=== PATIENT | male | born 1965 | race African-American/Black ===

== ENCOUNTER 2019-08-23 18:11 | Emergency (ER) | payer MEDICAID ==
[~2019-08-23] VITALS: Ht 170.2 cm; Wt 90.7 kg
[~2019-08-23 18:11] MED LIST: Advair HHN; IBUPROFEN400 MG PO; Lisinopril PO
[2019-08-23 18:17] VITALS: BP 217/122
[2019-08-23] MEDS ORDERED: LISINOPRIL20 MG ORAL (18:19)
[2019-08-23] MEDS ORDERED: hydroCHLOROthiazide 25mg cap ORAL ONE (18:30)
--- NOTE | 2019-08-23 19:05 | Emergency Room Report ---
History of Present Illness General Chief Complaint: Headache Source: Patient Present Illness HPI 53-year-old male with history of hypertension, asthma currently taking lisinopril brought in by paramedics due to new onset of fever, headache and loss of taste that started earlier today. Patient also complains of slight shortness of breath however denies chest pain, cough and congestion. Patient appears to have elevated blood pressure upon arrival reports that he has not taken his lisinopril today. Denies any recent travel. Reports that he has been staying at home is full-time quarantining himself. Denies abdominal pain, nausea vomiting diarrhea. Appears to have low-grade fever of 99 F, with normal oxygenation. O2 sat is 99% on room air. Vital signs otherwise within normal limits. Reports that he ran out of his albuterol inhaler and is requesting a refill. Reports that he also feels swelling and achiness in his lower extremities however denies any tingling numbness or pain. Reports that he also suffers from anxiety and every now and then vapes. Denies tobacco smoke. Allergies: Coded Allergies: No Known Allergies (Unverified , 04/01/12) COVID-19 Screening Contact w/high risk pt: No Recent Travel to affected area: No Experienced COVID-19 symptoms?: Yes COVID-19 symptoms experienced: Fever (T>100.4F or >38C) Patient History Past Medical History: see triage record Past Surgical History: none Pertinent Family History: none Reviewed Nursing Documentation: PMH: Agreed; PSxH: Agreed Nursing Documentation-PMH Hx Hypertension: Yes Hx Asthma: Yes Review of Systems All Other Systems: negative except mentioned in HPI Physical Exam Vital Signs Date Time Temp Pulse Resp B/P (MAP) Pulse Ox O2 Delivery O2 Flow Rate FiO2 08/23/19 18:07 99.9 20 18 200/109 (139) 99 Room Air Sp02 EP Interpretation: reviewed, normal General Appearance: no apparent distress, alert, GCS 15, non-toxic Head: normocephalic, atraumatic Eyes: bilateral eye normal inspection, bilateral eye PERRL ENT: hearing grossly normal, normal pharynx, no angioedema, normal voice Neck: full range of motion, supple/symm/no masses Respiratory: chest non-tender, lungs clear, normal breath sounds, no rhonchi, no retraction, no wheezing, speaking full sentences Cardiovascular #1: regular rate, rhythm, no edema Gastrointestinal: normal inspection Genitourinary: normal inspection Musculoskeletal: normal inspection Neurologic: alert, motor strength/tone normal, oriented x3, sensory intact, responsive, speech normal Psychiatric: judgement/insight normal, memory normal, mood/affect normal, no suicidal/homicidal ideation Skin: no rash Lymphatic: normal inspection Medical Decision Making PA Attestation All my diagnosis and treatment plans were reviewed ad discussed with my supervising physician Dr. Pryor Diagnostic Impression: Primary Impression: Suspected COVID-19 virus infection Additional Impressions: Headache Asthma HTN (hypertension) ER Course 53-year-old male with history of hypertension, asthma currently taking lisinopril brought in by paramedics due to new onset of fever, headache and loss of taste that started earlier today. Patient also complains of slight shortness of breath however denies chest pain, cough and congestion. Patient appears to have elevated blood pressure upon arrival reports that he has not taken his lisinopril today. Denies any recent travel. Reports that he has been staying at home is full-time quarantining himself. Denies abdominal pain, nausea vomiting diarrhea. Appears to have low-grade fever of 99 F, with normal oxygenation. O2 sat is 99% on room air. Vital signs otherwise within normal limits. Reports that he ran out of his albuterol inhaler and is requesting a refill. Reports that he also feels swelling and achiness in his lower extremities however denies any tingling numbness or pain. Reports that he also suffers from anxiety and every now and then vapes. Denies tobacco smoke. Ddx considered but are not limited to: Coronavirus, strep pharyngitis, URI, tonsillitis, peritonsillar abscess, influneza Vital signs: are WNL, pt. is afebrile H&PE are most consistent with: Suspected COVID-19, headache, asthma, hypertension ORDERS: Chest x-ray, amlodipine, Tylenol, albuterol inhaler ED INTERVENTIONS: Amlodipine 10 mg p.o., hydrochlorothiazide 25 mg p.o. DISCHARGE: At this time pt. is stable for d/c to home. Will provide printed patient care instructions, and any necessary prescriptions. Care plan and follow up instructions have been discussed with the patient prior to discharge. Take medication as directed, follow-up with your primary doctor, you need to stay home for self quarantine due to Covid 19 precautions for 14 days patient to follow-up with primary doctor regarding leg swelling and all other. Associated symptoms. At this time patient is stable to go home however advised him to return to the emergency room if any respiratory distress and worsening symptoms. Also gave information to the COVID-[address] and advised him to make appointment. Also advised patient to stop vaping as it will exacerbate his symptoms and may expedite progression of symptoms into respiratory distress. Also advised patient to stop taking lisinopril as CLAUDIA inhibitors are contraindicated while being infected by COVID-19. Advised patient to start taking amlodipine instead. Chest X-Ray Diagnostic Results Chest X-Ray Diagnostic Results : Chest X-Ray Ordered: Yes # of Views/Limited/Complete: 1 View Indication: Shortness of Breath EP Interpretation: Yes PA Xray: Interpretation reviewed, by supervising MD, and agrees with findings. Interpretation: no consolidation, no effusion, no pneumothorax Impression: No acute disease Electronically Signed by: Sriram Inman PA-C Last Vital Signs Date Time Temp Pulse Resp B/P (MAP) Pulse Ox O2 Delivery O2 Flow Rate FiO2 08/23/19 18:28 20 217/122 08/23/19 18:17 99.9 16 100 Room Air Disposition: HOME, SELF-CARE Condition: Stable Scripts Acetaminophen* (TYLENOL EXTRA STRENGTH*) 500 Mg Tablet 500 MG ORAL Q8H PRN for Prn Headache/Temp > 101, #30 TAB 0 Refills Prov: Sriram Waller 08/23/19 Amlodipine Besylate* (AMLODIPINE BESYLATE*) 10 Mg Tablet 10 MG ORAL DAILY for 30 Days, #30 TAB Prov: Sriram Waller 08/23/19 Albuterol Sulfate (VENTOLIN HFA) 18 Gm Hfa.aer.ad 2 PUFFS INH EVERY 6 HOURS, #18 GM 0 Refills Prov: Sriram Waller 08/23/19 Referrals: NOT CHOSEN IPA/,REFERRING (PCP) Patient Instructions: Asthma, Adult, [id number], General Headache Without Cause, Hypertension, [id number], Upper Respiratory Infection, Adult, Easy-to- Read Additional Instructions: Take medication as directed, follow-up with your primary doctor, you need to stay home for self quarantine due to Covid 19 precautions for 14 days. Stop taking lisinopril for your high blood pressure, start taking amlodipine instead. Contact your primary care provider. If worsening symptoms, difficulty breathing, respiratory distress return emergency room. Sriram Waller Aug 23, 2019 19:05
[2019-08-23] MEDS ORDERED: VENTOLIN HFA18 GM INH (19:06)
[2019-08-23] MEDS ORDERED: AMLODIPINE BESY10 MG ORAL (19:06)
[2019-08-23] MEDS ORDERED: TYLENOL EXTRA500 MG ORAL (19:06)
[2019-08-23 19:15] VITALS: BP 217/122
--- NOTE | 2019-08-24 08:38 | Diagnostic Imaging Report ---
Indication: Cough Technique: One view of the chest Comparison: 07/24/2010 Findings: There is a 3 cm diameter ovoid masslike opacity right upper lobe, not evident previously. Some atelectasis is seen in the left perihilar region. The remainder of the lungs and pleural spaces are clear. The heart size is normal. Impression: 3 cm right upper lobe masslike opacity. Possibility of neoplasm should be considered. Consider further evaluation with chest CT. This finding was reported to Dr. Mckeon in the emergency room at the time of interpretation Left perihilar atelectatic changes. No acute process otherwise
== END 2019-08-23 19:16 | disposition home or self-care (01) ==
LOC: EDBD 18:11 → EMR 18:34
DX: R51 Headache (principal); J45.909 Unspecified asthma, uncomplicated; I10 Essential (primary) hypertension; R50.9 Fever, unspecified
CPT/HCPCS: 71045; Z7502; 99283

== ENCOUNTER 2020-01-01 22:08 | Emergency (ER) | payer MEDICAID, OTHER ==
[~2020-01-01] VITALS: Ht 172.7 cm; Wt 90.7 kg
[~2020-01-01 22:08] MED LIST changes: +AMLODIPINE BESY10 MG ORAL; +LISINOPRIL20 MG ORAL; +TYLENOL EXTRA500 MG ORAL; +VENTOLIN HFA18 GM INH
[2020-01-01] MEDS ORDERED: Aspirin Baby 81mg ORAL ONE (22:15)
[2020-01-01] MEDS ORDERED: Solu-MEDROL 125mg Inj IVP ONE (22:15)
--- NOTE | 2020-01-01 22:15 | Emergency Room Report ---
History of Present Illness General Chief Complaint: Dyspnea/Respdistress Source: Patient, Medical Record, EMS Present Illness HPI This is a 54-year-old male with a history of hypertension and asthma. His asthma is usually well controlled until lately. He said last week he has to use his inhaler more. Denies any fever chills but denies any nausea vomiting. Worse with exertion. Better with rest. Symptoms worsened tonight where he said he could not breathe. He had to call 911. Per EMS, his room air pulse oxygenation was 90%. He was anxious and was tripoding. Was wheezing. [employer] gave him 5 mg albuterol. Blood pressure was also very elevated with systolic over 230. Patient said that he has been increasing edema to lower extremity. Worse with exertion. Better with rest. Worse with lying flat. Denies any chest pain. Never been intubated before. Allergies: Coded Allergies: No Known Allergies (Unverified , 04/01/12) COVID-19 Screening Contact w/high risk pt: No Recent Travel to affected area: No Experienced COVID-19 symptoms?: Yes COVID-19 symptoms experienced: Fever (T>100.4F or >38C) COVID-19 Testing performed FLOOR TRADER: No Patient History Past Medical History: see triage record, old chart reviewed, HTN, asthma Past Surgical History: none Pertinent Family History: none Social History: Denies: smoking Immunizations: other Reviewed Nursing Documentation: PMH: Agreed; PSxH: Agreed Nursing Documentation-PMH Hx Hypertension: Yes Hx Asthma: Yes Review of Systems Eye: Denies: eye pain, blurred vision ENT: Denies: ear pain, nose congestion, throat swelling Respiratory: Reports: shortness of breath, wheezing; Denies: cough Cardiovascular: Denies: chest pain, palpitations Gastrointestinal: Denies: abdominal pain, diarrhea, nausea, vomiting Musculoskeletal: Denies: back pain, joint pain Skin: Denies: rash Neurological: Denies: headache, numbness Endocrine: Denies: increased thirst, increased urine Hematologic/Lymphatic: Denies: easy bruising All Other Systems: negative except mentioned in HPI Physical Exam Vital Signs Date Time Temp Pulse Resp B/P (MAP) Pulse Ox O2 Delivery O2 Flow Rate FiO2 01/01/20 22:04 99.0 130 22 235/100 (145) 92 Room Air Vitals with hypotension and tachycardia Sp02 EP Interpretation: reviewed, abnormal General Appearance: well appearing, alert, moderate distress Head: normocephalic, atraumatic Eyes: bilateral eye PERRL, bilateral eye EOMI ENT: hearing grossly normal, normal pharynx Neck: full range of motion, supple, no meningismus Respiratory: chest non-tender, respiratory distress, decreased breath sounds, accessory muscle use, wheezing Cardiovascular #1: regular rate, rhythm, no murmur Gastrointestinal: normal bowel sounds, non tender, no mass, no organomegaly, no bruit, non-distended Musculoskeletal: back normal, normal range of motion, gait/station normal, swelling - 1+ edema Psychiatric: mood/affect normal Medical Decision Making Diagnostic Impression: Primary Impression: Respiratory distress Additional Impressions: Asthma exacerbation Qualified Codes: J45.901 - Unspecified asthma with (acute) exacerbation Hypertension Qualified Codes: I10 - Essential (primary) hypertension ER Course Patient presents with respiratory distress. Much improved after breathing treatment by EMS. I gave him steroid here. Blood pressure also improved. He said he felt much better now. Back to baseline. No wheezing. EKG is normal. Troponin is negative. BNP is normal. He did diurese well with Lasix. Blood pressure is now 153/100. He was on Norvasc in addition to his lisinopril. He stopped it because it caused pedal edema. Initially I put patient in for admission but since he felt back to baseline and has no respiratory issue now, he wants to go home. His room air oxygenation is 98 to 100%. EKG Diagnostic Results Rate: tachycardiac - 106 Rhythm: NSR ST Segments: no acute changes ASA given to the pt in ED: Yes Rhythm Strip Diag. Results EP Interpretation: yes Rate: 100 Rhythm: NSR, no PVC's, no ectopy Chest X-Ray Diagnostic Results Chest X-Ray Diagnostic Results : Chest X-Ray Ordered: Yes # of Views/Limited/Complete: 1 View Indication: Shortness of Breath EP Interpretation: Yes Interpretation: no consolidation, no effusion, no pneumothorax, no acute cardiopulmonary disease Impression: No acute disease Electronically Signed by: Alvino Suazo MD Last Vital Signs Date Time Temp Pulse Resp B/P (MAP) Pulse Ox O2 Delivery O2 Flow Rate FiO2 8/30/20 22:04 99.0 130 22 235/100 (145) 92 Room Air Status: improved Disposition: HOME, SELF-CARE Condition: Stable Scripts Hydrochlorothiazide* (HYDROCHLOROTHIAZIDE*) 25 Mg Tablet 25 MG ORAL DAILY, #90 TAB Prov: Alvino Suazo MD 01/01/20 Lisinopril* (LISINOPRIL*) 40 Mg Tablet 40 MG ORAL DAILY, #90 TAB Prov: Alvino Suazo MD 01/01/20 Prednisone* (PREDNISONE*) 20 Mg Tablet 40 MG ORAL DAILY, #10 TAB Prov: Alvino Suazo MD 01/01/20 Albuterol Sulfate* (PROAIR HFA*) 8.5 Gm Hfa.aer.ad 2 PUFFS INH Q4HR, #8.5 GM 0 Refills Prov: Alvino Suazo MD 01/01/20 Additional Instructions: Increase your lisinopril to 40 mg a day. Follow-up with your doctor in 3 to 5 days. Keep a log of your blood pressure reading every day. Bring this to your doctor. Return if symptoms worsen. Alvino Suazo MD Jan 01, 2020 22:15
--- NOTE | 2020-01-01 22:15 | NUR ---
ED Nurse Note: Patient brought in by ambulance 70 from home with c/o of shortness of breath onset 30mins ago. Pt states cause is unknown. Pt is on inhaler but did not helped. Per EMS wheezing was heard and EMS gave 1 breathing treatment and patient felt better after. Patient also has edema on both legs which he had because of taking BP meds as stated by patient. Patient saturation at room air at bedside 97% after breathing treatment. Patient is AAOx4 and ambulatory. Placed on isolation bed
--- NOTE | 2020-01-01 22:16 | NUR ---
ED Nurse Note: ERMD at bedside
--- NOTE | 2020-01-01 22:30 | NUR ---
ED Nurse Note: Blood specimen sent Rapid covid test sent
[2020-01-01 22:35] LABS: BASOPHILS % (AUTO) 1.3 % (0.0-2.0); EOSINOPHILS % (AUTO) 5.7 % (0.0-3.0); HEMATOCRIT 41.1 % (42.0-52.0); HEMOGLOBIN 13.3 G/DL (14.2-18.0); LYMPHOCYTES % (AUTO) 22.5 % (20.0-45.0); MEAN CORPUSCULAR VOLUME 88 FL (80-99); MONOCYTES % (AUTO) 6.4 % (1.0-10.0); NEUTROPHILS % (AUTO) 64.1 % (45.0-75.0); PLATELET COUNT 260 K/UL (150-450); RED BLOOD COUNT 4.67 M/UL (4.70-6.10); RED CELL DISTRIBUTION WIDTH 12.9 % (11.6-14.8); WHITE BLOOD COUNT 9.9 K/UL (4.8-10.8)
--- NOTE | 2020-01-01 22:41 | Diagnostic Imaging Report ---
EXAM: XR Chest, 1 View CLINICAL HISTORY: SOB TECHNIQUE: Frontal view of the chest. COMPARISON: 08/23/19 FINDINGS: The cardiac and mediastinal silhouettes are unchanged and without acute findings. Tortuosity/ectasia of the thoracic aorta is again noted. Negative for parenchymal consolidation, pneumothorax or pleural fluid collections.
[2020-01-01 22:47] LABS: ANION GAP 6 mmol/L (5-15); BLOOD UREA NITROGEN 15 mg/dL (7-18); CALCIUM 8.7 MG/DL (8.5-10.1); CARBON DIOXIDE 31 MMOL/L (21-32); CHLORIDE 102 MMOL/L (98-107); CREATININE 1.3 MG/DL (0.55-1.30); POTASSIUM 3.9 MMOL/L (3.5-5.1); SODIUM 139 MMOL/L (136-145)
--- NOTE | 2020-01-01 22:50 | NUR ---
ED Nurse Note: Post furo output: 500mls of urine
--- NOTE | 2020-01-01 22:50 | NUR ---
ED Nurse Note: Urine specimen sent
[2020-01-01 22:57] LABS: APPEARANCE,URINE CLEAR; BILIRUBIN, URINE NEGATIVE (NEGATIVE); COLOR,URINE PALE YELLOW; GLUCOSE, URINE (UA) NEGATIVE (NEGATIVE); KETONES,URINE NEGATIVE (NEGATIVE); LEUKOCYTE ESTERASE ,URINE NEGATIVE (NEGATIVE); NITRITE,URINE NEGATIVE (NEGATIVE); PH,URINE 7 (4.5-8.0); PROTEIN,URINE NEGATIVE (NEGATIVE); UROBILINOGEN,URINE NORMAL MG/DL (0.0-1.0)
[2020-01-01 22:58] VITALS: BP 168/85
[2020-01-01 22:58] LABS: ALANINE AMINOTRANSFERASE 19 U/L (12-78); ALBUMIN 3.9 G/DL (3.4-5.0); ALKALINE PHOSPHATASE 74 U/L (46-116); ASPARTATE AMINO TRANSFERASE 17 U/L (15-37); BILIRUBIN,TOTAL 0.5 MG/DL (0.2-1.0)
[2020-01-01] MEDS ORDERED: LISINOPRIL40 MG ORAL (23:47)
[2020-01-01] MEDS ORDERED: HYDROCHLOROTHIA25 MG ORAL (23:47)
[2020-01-01] MEDS ORDERED: PROAIR HFA8.5 GM INH (23:47)
[2020-01-01] MEDS ORDERED: PREDNISONE20 MG ORAL (23:47)
--- NOTE | 2020-01-02 00:06 | NUR ---
ER DISCHARGE NOTE: Patient is cleared to be discharged per ERMD, pt is aox4, on room air, with stable vital signs. pt was given dc and prescription instructions, pt was able to verbalize understanding, pt id band and iv site removed without complications. pt is able to ambulate with steady gait. pt took all belongings.
[2020-01-02 00:07] VITALS: BP 148/78
== END 2020-01-02 00:09 | disposition home or self-care (01) ==
LOC: EDBD 22:08 → EMR 22:20 → CANBEDREQ 23:51 → EMR 01-02 00:09
DX: R06.03 Acute respiratory distress (principal); J45.901 Unspecified asthma with (acute) exacerbation; I10 Essential (primary) hypertension; R00.0 Tachycardia, unspecified
CPT/HCPCS: 36415; 71045; 80053; 80307; 81003; 83880; 84484; 85025; 85379; 86140; 93005; 96374; 96375; J1940; J2930; U0002; Z7502; 99284